=== PATIENT | female | born 1960 | race American Indian/Alaskan Native ===

== ENCOUNTER 2016-11-26 23:07 | Inpatient (IN) | payer SELFPAY ==
[2016-11-27 00:11] LABS: Basophils % (Auto) 0.7 % (0.0-1.8); Eosinophils % (Auto) 1.7 % (0.0-4.3); Hematocrit 42.3 % (30.3-42.9); Hemoglobin 13.8 gm/dl (10.1-14.3); Mean Corpuscular HGB Conc 33 % (30-34); Mean Corpuscular Hemoglobin 29 pg (28-32); Mean Corpuscular Volume 88 fl (79-97); Platelet Count 235 K/mm3 (140-440); Red Cell Distribution Width 14.9 % (13.2-15.2); White Blood Count 15.2 K/mm3 (4.5-11.0)
[2016-11-27 00:26] LABS: Alanine Aminotransferase 9 units/L (7-56); Albumin/Globulin Ratio 1.1 %; Alkaline Phosphatase 72 units/L (35-129); Anion Gap 16 mmol/L; BUN/Creatinine Ratio 12.22; Bilirubin,Total 0.9 mg/dL (0.1-1.2); Blood Urea Nitrogen 11 mg/dL (7-17); Calcium 9.2 mg/dL (8.4-10.2); Carbon Dioxide 27 mmol/L (22-30); Chloride 99.1 mmol/L (98-107); Glucose 95 mg/dL (65-100); Lipase 19 units/L (13-60); Potassium 3.9 mmol/L (3.6-5.0); Sodium 138 mmol/L (137-145); Total Protein 7.5 g/dL (6.3-8.2)
[2016-11-27 01:04] LABS: Bilirubin,Urine NEG (Negative); Blood,Urine NEG (Negative); Ketones,Urine NEG (Negative); Leukocyte Esterase,Urine NEG (Negative); Mucus,Urine FEW /HPF; Nitrite,Urine NEG (Negative); Protein,Urine <15 mg/dL mg/dL (Negative); Urobilinogen,Urine < 2.0 mg/dL (<2.0)
[2016-11-27] MEDS ORDERED: NACL 0.9% 1000 ML 1,000 ML IV ONE ×2 (06:38→10:45)
[2016-11-27] MEDS ORDERED: ZOFRAN IV ONE (06:38)
[2016-11-27] MEDS ORDERED: DILAUDID IV ONE ×2 (06:39→10:44)
[2016-11-27] MEDS ORDERED: TYLENOL PO ONE (06:40)
--- NOTE | 2016-11-27 06:40 | Emergency Department Report ---
ED Abdominal Pain HPI - General Chief Complaint: Abdominal Pain Stated Complaint: ABD PAIN/EMESIS Time Seen by Provider: 11/27/16 06:30 Source: patient, RN notes reviewed Mode of arrival: Ambulatory Limitations: No Limitations - History of Present Illness Initial Comments: This is a 56-year-old female. She is previously unknown to me. She does not have a primary care doctor. Reports a past medical history of hypertension. Surgical history includes cholecystectomy, appendectomy, partial hysterectomy, C -section. The patient presents to the ER with abdominal pain. Abdominal pain is diffuse. Positive nausea and vomiting. It is sharp. It does not radiate to the back. There is no chest pain or shortness of breath. No irritative or obstructive urinary symptoms. Reports brown stool and diarrhea. There is no hematemesis. There is no bright red blood per rectum. MD Complaint: abdominal pain -: Gradual Location: diffuse Severity: moderate Severity scale (0 -10): 6 Quality: cramping, aching Consistency: constant Improves With: medication, rest Worsens With: movement Associated Symptoms: nausea, vomiting - Related Data Previous Rx's Medication Instructions Recorded Last Taken Type Oxycodone HCl/Acetaminophen 1 each PO Q6HR PRN #20 tablet 12/13/13 Unknown Rx [Percocet 10-325 mg] Promethazine [Phenergan] 25 mg PO Q6H PRN #20 tablet 12/13/13 Unknown Rx Allergies Allergy/AdvReac Type Severity Reaction Status Date / Time hydrocodone Allergy Itching Verified 12/12/13 19:41 ED Review of Systems ROS: Stated complaint: ABD PAIN/EMESIS Other details as noted in HPI Constitutional: malaise Eyes: denies: vision change ENT: denies: epistaxis Respiratory: denies: cough Cardiovascular: denies: chest pain Gastrointestinal: abdominal pain, nausea, diarrhea Genitourinary: as per HPI. denies: urgency Musculoskeletal: denies: back pain Skin: denies: lesions Neurological: weakness Psychiatric: anxiety ED Past Medical Hx - Past Medical History Previous Medical History?: Yes Hx Hypertension: Yes Additional medical history: Obesity - Surgical History Past Surgical History?: Yes Hx Cholecystectomy: Yes Additional Surgical History: hysterectomy, , right knee surg - Social History Smoking Status: Current Every Day Smoker Substance Use Type: None - Medications Home Medications: Home Medications Medication Instructions Recorded Confirmed Last Taken Type Oxycodone HCl/Acetaminophen 1 each PO Q6HR PRN #20 tablet 12/13/13 11/27/16 Unknown Rx [Percocet 10-325 mg] Promethazine [Phenergan] 25 mg PO Q6H PRN #20 tablet 12/13/13 11/27/16 Unknown Rx ED Physical Exam - General Limitations: No Limitations General appearance: obese - Head Head exam: Present: atraumatic, normocephalic - Eye Eye exam: Present: normal appearance, EOMI. Absent: nystagmus - ENT ENT exam: Present: normal exam, normal orophraynx, mucous membranes moist, normal external ear exam - Neck Neck exam: Present: normal inspection, full ROM. Absent: tenderness, meningismus - Respiratory Respiratory exam: Present: normal lung sounds bilaterally. Absent: respiratory distress, wheezes, rales, rhonchi, stridor, decreased breath sounds - Cardiovascular Cardiovascular Exam: Present: regular rate, normal rhythm, normal heart sounds. Absent: bradycardia, tachycardia, irregular rhythm, systolic murmur, diastolic murmur, rubs, gallop - GI/Abdominal GI/Abdominal exam: Present: soft, tenderness, normal bowel sounds. Absent: distended, guarding, rebound, rigid, pulsatile mass - Extremities Exam Extremities exam: Present: normal inspection, full ROM, normal capillary refill. Absent: tenderness, pedal edema, joint swelling, calf tenderness - Back Exam Back exam: Present: normal inspection, full ROM. Absent: tenderness, CVA tenderness (R), CVA tenderness (L), muscle spasm, paraspinal tenderness, vertebral tenderness - Neurological Exam Neurological exam: Present: alert, oriented X3, normal gait, other (Extraocular movements intact. Tongue midline. No facial droop. Facial sensation intact to light touch in the V1, V2, V3 distribution bilaterally. 5 and 5 strength in 4 extremities.. Sensation is intact to light touch in 4 extremities.). Absent : motor sensory deficit - Psychiatric Psychiatric exam: Present: normal affect, normal mood - Skin Skin exam: Present: warm, dry, intact, normal color. Absent: rash ED Course Vital Signs 11/26/16 11/27/16 23:44 11:09 Temperature 99.4 F Pulse Rate 78 70 Respiratory 20 16 Rate Blood Pressure 198/113 121/72 [Right] O2 Sat by Pulse 100 94 Oximetry - Reevaluation(s) Reevaluation #1: 11/27/16 10:00 differential diagnosis: Colitis, diverticulitis, bowel perforation, appendicitis Assessment and plan: 56-year-old female with diffuse abdominal tenderness, low- grade temperature, found to be hypertensive, hypertension may be secondary to pain. Pain is treated aggressively. Laboratory studies reviewed. CT scan of the abdomen and pelvis is performed. Interpretation is pending. Reevaluation #2: 11/27/16 10:46 CT scans suggest microperforation. Case is discussed with the general surgeon, Dr. Anaya, he will follow as a consult. Patient has required multiple doses of IV narcotic pain medication. She will require additional IV fluids, IV antibiotics, and admission. The case is discussed with the Hospital physician, Dr. Anaya, who accepts patient to her service, patient and family informed and they are agreeable to admission. ED Medical Decision Making - Lab Data Result diagrams: 11/26/16 23:55 11/26/16 23:55 Vital Signs 11/26/16 23:44 Temperature 99.4 F Pulse Rate 78 Respiratory 20 Rate Blood Pressure 198/113 [Right] O2 Sat by Pulse 100 Oximetry Labs 11/26/16 11/26/16 11/26/16 23:55 23:55 Unknown WBC 15.2 H RBC 4.80 Hgb 13.8 Hct 42.3 MCV 88 MCH 29 MCHC 33 RDW 14.9 Plt Count 235 Lymph % (Auto) 23.3 [place] % (Auto) 7.7 H Eos % (Auto) 1.7 Baso % (Auto) 0.7 Lymph # 3.5 [place] # 1.2 H Eos # 0.3 Baso # 0.1 Seg Neutrophils % 66.6 Seg Neutrophils # 10.1 H Sodium 138 Potassium 3.9 Chloride 99.1 Carbon Dioxide 27 Anion Gap 16 BUN 11 Creatinine 0.9 Estimated GFR > 60 BUN/Creatinine Ratio 12.22 Glucose 95 Calcium 9.2 Total Bilirubin 0.9 AST 13 ALT 9 Alkaline Phosphatase 72 Total Protein 7.5 Albumin 4.0 Albumin/Globulin Ratio 1.1 Lipase 19 Urine Color Yellow Urine Turbidity Clear Urine pH 5.0 Ur Specific [place] 1.010 Urine Protein <15 mg/dl Urine Glucose (UA) Neg Urine Ketones Neg Urine Blood Neg Urine Nitrite Neg Urine Bilirubin Neg Urine Urobilinogen < 2.0 Ur Leukocyte Esterase Neg Urine WBC (Auto) Not Reportable Urine RBC (Auto) 3.0 U Epithel Cells (Auto) < 1.0 Urine Mucus Few - Radiology Data Radiology results: report reviewed, image reviewed interpreted by me: As per verbal report from radiologist, CT scan demonstrates diverticulitis, possible microperforation Critical care attestation.: If time is entered above; I have spent that time in minutes in the direct care of this critically ill patient, excluding procedure time. ED Disposition Clinical Impression: Diverticulitis Qualifiers: Diverticulitis site: unspecified part of intestinal tract Diverticulitis bleeding: without bleeding Diverticulitis complication: with perforation Qualified Code(s): K57.80 - Diverticulitis of intestine, part unspecified, with perforation and abscess without bleeding Disposition: OP ADMITTED IP TO THIS HOSP Is pt being admited?: Yes Condition: Good
[2016-11-27] MEDS ORDERED: NACL ONE (06:49)
[2016-11-27] MEDS ORDERED: MORPHINE IV ONE (09:24)
[2016-11-27] MEDS ORDERED: ZOSYN/NS 4.5GM/100ML 4.5 GM/100 ML VIAL IV ONE (10:44)
--- NOTE | 2016-11-27 10:49 | Cat Scan Report ---
CT of the abdomen and pelvis with IV contrast. Findings: The liver and spleen are normal. The gallbladder has been removed. The pancreas and kidneys are unremarkable. There is no adenopathy within the retroperitoneum. In the left lower quadrant at the junction of the descending colon and proximal sigmoid region, there is mural thickening with juan antonio-colonic mesenteric stranding. Several diverticula are seen in the area. There may be a tiny collection of air anteriorly. The remainder of the GI tract appears normal. No free air is seen beneath the hemidiaphragms. Impression: Diverticulitis involving the distal descending and proximal sigmoid colon with possible microperforation.
--- NOTE | 2016-11-27 10:56 | Admit Criteria Form ---
Admission Criteria Documentation: DIVERTICULITIS, ACUTE Clinical Indications for Admission to Inpatient Care (Place 'X' for any and all applicable criteria): Admission is indicated for ANY ONE of the following (1)(2)(3)(4): [ X]I. Peritoneal signs on physical examination (eg, acute abdominal pain, abdominal tenderness and guarding) [ ]II. Hemodynamic instability [ ]III. Persistent gross bleeding per rectum [ ]IV. Need for inpatient surgical intervention [X ]V. Significant abnormality on imaging study including ANY ONE of the following: [ ]a) Abscess [ ]b) Obstruction [ ]c) Fistula [ ]d) Ileus [X ]e) Free perforation [ ]. Immunocompromised patient (steroid use, chemotherapy, uremia, AIDS , transplant patient ) with acute symptoms [ ]VII Inpatient admission required rather than observation care (also use Diverticulitis, Acute: Observation Care as appropriate) because of ANY ONE of the following: [ ]a) High fever or infection. requiring inpatient admission as indicated by ANY ONE of the following(5): [ ]1) Appropriate outpatient or observation care antimicrobial treatment unavailable, not effective, not feasible [ ]2) Temperature > 103.1 degrees F (39.5 degrees C) (oral) or < 96.8 degrees F (36 degrees C)(rectal) that does not respond to all emergency treatment measures [ ]3) Temperature> 104.9 degrees F (40.5 degrees C)( oral) [ ]4) Documented bacteremia [ ]b) Severe pain requiring acute inpatient management [ ]c) Severe electrolyte abnormalities requiring inpatient care [ ]d) Ongoing transfusion for blood loss (> 2 units) [ ]e) IV fluid to replace significant ongoing losses (> 3 L/m2 per day) [ ]f) Parenteral nutrition regimen that must be implemented on inpatient basis [ ]g) Other condition, treatment or monitoring requiring inpatient admission Extended stay beyond goal length of stay may be needed for (2) (15) : [ ]a) Unresolved symptoms (19) [ ]b) Complications [ ]c) Diverticular hemorrhage(2) The original [facility] [employer] content created by [facility] has been revised. The portions of the content which have been revised are identified through the use of italic text or in bold, and [facility] [employer] has neither reviewed nor approved the modified material. All other unmodified content is copyright [facility]. Please see references footnoted in the original [facility] edition 2016 Admission Criteria Met: Yes
[2016-11-27] MEDS ORDERED: LEVAQUIN 750MG/150ML 750 MG/150 ML BAG IV ONE (11:50)
--- NOTE | 2016-11-27 11:50 | History and Physical Report ---
History of Present Illness Date of examination: 11/27/16 Date of admission: 11/27/16 Chief complaint: Left lower quadrant abdominal pain since yesterday afternoon History of present illness: 56-year-old morbidly obese -Malaysian female patient with significant past medical history of hypertension noncompliant with medications presented to the emergency room with left lower quadrant abdominal pain since yesterday afternoon . Patient also complains of nausea vomiting no diarrhea. , No history of fever Denies chest pain shortness of breath , denies headache dizziness Member had similar symptoms in the past , initial workup in the ER was consistent with acute diverticulitis of descending colon No known relieving or aggravating factors Past History Past Medical History: hypertension Past Surgical History: cholecystectomy, , hysterectomy, Other (knee surgery) Social history: lives with family, smoking. denies: alcohol abuse, prescription drug abuse Family history: hypertension Medications and Allergies Allergies Allergy/AdvReac Type Severity Reaction Status Date / Time hydrocodone Allergy Itching Verified 12/12/13 19:41 Home Medications Medication Instructions Recorded Confirmed Last Taken Type Oxycodone HCl/Acetaminophen 1 each PO Q6HR PRN #20 tablet 12/13/13 11/27/16 Unknown Rx [Percocet 10-325 mg] Promethazine [Phenergan] 25 mg PO Q6H PRN #20 tablet 12/13/13 11/27/16 Unknown Rx Active Meds: Active Medications Levofloxacin/Dextrose (Levaquin 750mg/150ml) 750 mg in 150 mls @ 100 mls/hr IV Q24HR KOBE PRN Reason: Protocol Levofloxacin/Dextrose (Levaquin 750mg/150ml) 750 mg in 150 mls @ 100 mls/hr IV ONCE ONE PRN Reason: Protocol Stop: 11/27/16 13:19 Metronidazole (Flagyl 500 Mg/100 Ml) 500 mg in 100 mls @ 100 mls/hr IV Q8HR KOBE Review of Systems Constitutional: fatigue, no weight loss, no weight gain, no fever, no chills Ears, nose, mouth and throat: no nasal congestion, no nasal discharge Cardiovascular: no chest pain, no orthopnea, no palpitations, no shortness of breath Respiratory: no cough, no hemoptysis Gastrointestinal: abdominal pain, nausea, vomiting Musculoskeletal: no myalgias, no arthritis Integumentary: no rash, no lesions Neurological: no tingling, no seizures, no syncope Psychiatric: no anxiety, no depression Endocrine: no cold intolerance, no heat intolerance Hematologic/Lymphatic: no easy bruising, no easy bleeding Allergic/Immunologic: no urticaria, no allergic rhinitis Exam - Constitutional Vitals: Temp Pulse Resp BP Pulse Ox 99.4 F 70 16 121/72 94 11/26/16 23:44 11/27/16 11:09 11/27/16 11:09 11/27/16 11:09 11/27/16 11:09 General appearance: Present: mild distress, well-nourished, obese (morbidly obese) - EENT Eyes: Present: PERRL, EOM intact - Neck Neck: Present: supple, normal ROM - Respiratory Respiratory effort: normal Respiratory: bilateral: CTA, diminished, negative: rhonchi, wheezing - Cardiovascular Rhythm: regular Heart Sounds: Present: S1 & S2 - Extremities Extremities: no ischemia, pulses intact, pulses symmetrical Peripheral Pulses: within normal limits - Abdominal General gastrointestinal: Present: soft, tender (mild guarding left lower quadrant), hypoactive bowel sounds - Integumentary Integumentary: Present: clear, warm - Musculoskeletal Musculoskeletal: strength equal bilaterally - Psychiatric Psychiatric: appropriate mood/affect, cooperative - Neurologic Neurologic: CNII-XII intact, moves all extremities Results - Labs CBC & Chem 7: 11/26/16 23:55 11/26/16 23:55 Labs: Abnormal lab results 11/26/16 Range/Units 23:55 WBC 15.2 H (4.5-11.0) K/mm3 [place] % (Auto) 7.7 H (0.0-7.3) % [place] # 1.2 H (0.0-0.8) K/mm3 Seg Neutrophils # 10.1 H (1.8-7.7) K/mm3 Assessment and Plan --Acute diverticulitis, microperforation descending colon Nothing by mouth status, IV fluids, IV antibiotics Pain management Surgery/GI evaluation as needed --Leukocytosis secondary to diverticulitis and microperforation and sepsis --Acute abdominal pain Supportive care --DVT prophylaxis with Lovenox --Morbid obesity we will senior counsel commercial the patient and advised that she modification and exercise as tolerated and weight reduction When medically stable --Ongoing tobacco use Smoking cessation counseling done, strongly advised to quit tobacco use This and consequences of ongoing tobacco use discussed with the patient, verbalized understanding --Full CODE STATUS Follow surgical consultation and recommendations Patient's condition treatment plan discussed in detail with the patient as well as his nurse and the ER physician
[2016-11-27] MEDS: MORPHINE IV PRN ×3 (14:38→22:52)
[2016-11-27] MEDS: NACL 0.9% 1000 ML 1,000 ML IV SCH (16:25)
[2016-11-27] MEDS: FLAGYL 500 MG/100 ML 500 MG/100 ML BAG IV SCH (16:25)
[2016-11-28] MEDS: FLAGYL 500 MG/100 ML 500 MG/100 ML BAG IV SCH ×4 (00:17→22:10)
--- NOTE | 2016-11-28 02:04 | Consultation ---
HISTORY OF PRESENT ILLNESS: I saw the patient in the Emergency Room. She is a 56-year-old -Bangl[place] female came because of severe pain that she developed in the left aspect of the abdomen for about 1 day duration. She had severe nausea and vomiting. She gives a history of cholecystectomy many years back and hysterectomy. She had 2 children, the youngest is 33-year-old. The pain at this time happened while she was asleep and she could not take it anymore. She never had pain like this in the past, not even less than that. She was evaluated by our Emergency Room physician and her CBC showed a white count of 15,000 with hemoglobin of 13.8 and platelets were 235. The alkaline phosphatase is normal. The potassium is 3.9. Bilirubin total is 0.9. 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 I read the films with Dr. Migue Amaya, our radiologist. There is evidence of thickening of the wall of the sigmoid colon to about cm and there is questionable very minute well localized perforation without free air. This was a little bit of concern to Dr. Amaya. Rest of examination did not reveal anything specific. ALLERGIC: Allergic reactions to codeine mainly. PHYSICAL EXAMINATION: GENERAL: Showed a well preserved obese black female. She was in pain to me when I saw her. HEAD AND NECK: Negative. BREASTS: Symmetric. These were pendulous without any specific masses. No tenderness, no nipple retraction, no lymphadenopathy. CHEST: Essentially clear. HEART: Sounds normal to me. ABDOMEN: Protuberant, very, with severe tenderness in the left lower quadrant aspects. No rebound. Moderate bowel sounds. EXTREMITIES: Showed trace edema. IMPRESSION: 1. Left side abdominal pain, nausea and vomiting with radiological picture of localized perforated diverticular disease with thickened wall of the sigmoid colon. 2. Exogenous obesity. 3. Status post cholecystectomy open and hysterectomy. Surgically speaking, I believe we need to pursue that further with just observation. The patient already on Levaquin and Flagyl given to her by our hospitalist to be n.p.o. with IV fluids and we will go from there. We are going to repeat her KUB tomorrow. I believe we may need to do a CAT scan again in about 3-4 days to see how things would be. I did indicate to her that she may need an operation and we will just go from there. JOB# [id number] AYESHA/VICTOR MANUEL
[2016-11-28 05:38] LABS: Basophils % (Auto) 0.7 % (0.0-1.8); Eosinophils % (Auto) 2.2 % (0.0-4.3); Hematocrit 39.5 % (30.3-42.9); Hemoglobin 12.8 gm/dl (10.1-14.3); Mean Corpuscular HGB Conc 32 % (30-34); Mean Corpuscular Hemoglobin 29 pg (28-32); Mean Corpuscular Volume 89 fl (79-97); Platelet Count 209 K/mm3 (140-440); Red Blood Count 4.43 M/mm3 (3.65-5.03); Red Cell Distribution Width 14.8 % (13.2-15.2); White Blood Count 11.8 K/mm3 (4.5-11.0)
[2016-11-28 05:42] LABS: Anion Gap 18 mmol/L; BUN/Creatinine Ratio 11.66; Blood Urea Nitrogen 7 mg/dL (7-17); Calcium 8.6 mg/dL (8.4-10.2); Carbon Dioxide 24 mmol/L (22-30); Chloride 101.9 mmol/L (98-107); Glucose 90 mg/dL (65-100); Magnesium 1.9 mg/dL (1.7-2.3); Phosphorous 3.5 mg/dL (2.5-4.5); Potassium 4.1 mmol/L (3.6-5.0); Sodium 140 mmol/L (137-145)
--- NOTE | 2016-11-28 09:44 | Progress Note ---
Assessment and Plan Assessment and plan: --Acute diverticulitis, microperforation descending colon Continue Nothing by mouth status, IV fluids, IV Levaquin and Flagyl Pain management, Surgery following KUB findings reviewed --Leukocytosis secondary to diverticulitis and microperforation and sepsis Trending down closely monitor --Acute abdominal pain Pain management nothing by mouth status --DVT prophylaxis with Lovenox --Morbid obesity we will child guidance counselor the patient and advised that she modification and exercise as tolerated and weight reduction When medically stable --Ongoing tobacco use Smoking cessation counseling done, strongly advised to quit tobacco use This and consequences of ongoing tobacco use discussed with the patient, verbalized understanding --Full CODE STATUS Surgical evaluation and recommendations noted and appreciated Closely monitor the patient and adjust the management as needed Patient's condition treatment plan discussed in detail with the patient as well as her nurse Answered all her questions and she verbalized understanding History Interval history: Patient seen and evaluated in her room this morning medical records reviewed Admitted with acute colitis, nothing by mouth on IV antibiotics Patient continues to have severe left lower quadrant abdominal pain and mild nausea Hospitalist Physical - Constitutional Vitals: Temp Pulse Resp BP Pulse Ox 98.3 F 63 20 144/91 91 11/28/16 07:25 11/27/16 22:48 11/28/16 07:25 11/27/16 22:48 11/27/16 22:48 General appearance: Present: mild distress, well-nourished, obese (morbidly obese) - EENT Eyes: Present: PERRL, EOM intact - Neck Neck: Present: supple, normal ROM - Respiratory Respiratory effort: normal Respiratory: bilateral: diminished, negative: rales, rhonchi, wheezing - Cardiovascular Rhythm: regular Heart Sounds: Present: S1 & S2 - Extremities Extremities: no ischemia, pulses intact, pulses symmetrical Peripheral Pulses: within normal limits - Abdominal General gastrointestinal: soft, tender (mild guarding and rigidity left lower quadrant), non-distended, hypoactive bowel sounds - Integumentary Integumentary: Present: clear, warm - Psychiatric Psychiatric: appropriate mood/affect, cooperative - Neurologic Neurologic: CNII-XII intact Results - Labs CBC & Chem 7: 11/28/16 05:08 11/28/16 05:08 Labs: Laboratory Last Values WBC 11.8 K/mm3 (4.5-11.0) H 11/28/16 05:08 RBC 4.43 M/mm3 (3.65-5.03) 11/28/16 05:08 Hgb 12.8 gm/dl (10.1-14.3) 11/28/16 05:08 Hct 39.5 % (30.3-42.9) 11/28/16 05:08 MCV 89 fl (79-97) 11/28/16 05:08 MCH 29 pg (28-32) 11/28/16 05:08 MCHC 32 % (30-34) 11/28/16 05:08 RDW 14.8 % (13.2-15.2) 11/28/16 05:08 Plt Count 209 K/mm3 (140-440) 11/28/16 05:08 Lymph % (Auto) 20.2 % (13.4-35.0) 11/28/16 05:08 [place] % (Auto) 6.8 % (0.0-7.3) 11/28/16 05:08 Eos % (Auto) 2.2 % (0.0-4.3) 11/28/16 05:08 Baso % (Auto) 0.7 % (0.0-1.8) 11/28/16 05:08 Lymph # 2.4 K/mm3 (1.2-5.4) 11/28/16 05:08 [place] # 0.8 K/mm3 (0.0-0.8) 11/28/16 05:08 Eos # 0.3 K/mm3 (0.0-0.4) 11/28/16 05:08 Baso # 0.1 K/mm3 (0.0-0.1) 11/28/16 05:08 Seg Neutrophils % 70.1 % (40.0-70.0) H 11/28/16 05:08 Seg Neutrophils # 8.3 K/mm3 (1.8-7.7) H 11/28/16 05:08 Sodium 140 mmol/L (137-145) 11/28/16 05:08 Potassium 4.1 mmol/L (3.6-5.0) 11/28/16 05:08 Chloride 101.9 mmol/L (98-107) 11/28/16 05:08 Carbon Dioxide 24 mmol/L (22-30) 11/28/16 05:08 Anion Gap 18 mmol/L 11/28/16 05:08 BUN 7 mg/dL (7-17) 11/28/16 05:08 Creatinine 0.6 mg/dL (0.7-1.2) L 11/28/16 05:08 Estimated GFR > 60 ml/min 11/28/16 05:08 BUN/Creatinine Ratio 11.66 % 11/28/16 05:08 Glucose 90 mg/dL (65-100) 11/28/16 05:08 Calcium 8.6 mg/dL (8.4-10.2) 11/28/16 05:08 Phosphorus 3.5 mg/dL (2.5-4.5) 11/28/16 05:08 Magnesium 1.9 mg/dL (1.7-2.3) 11/28/16 05:08 Total Bilirubin 0.9 mg/dL (0.1-1.2) 11/26/16 23:55 AST 13 units/L (5-40) 11/26/16 23:55 ALT 9 units/L (7-56) 11/26/16 23:55 Alkaline Phosphatase 72 units/L (35-129) 11/26/16 23:55 Total Protein 7.5 g/dL (6.3-8.2) 11/26/16 23:55 Albumin 4.0 g/dL (3.9-5) 11/26/16 23:55 Albumin/Globulin Ratio 1.1 % 11/26/16 23:55 Lipase 19 units/L (13-60) 11/26/16 23:55 Urine Color Yellow (Yellow) 11/26/16 Unknown Urine Turbidity Clear (Clear) 11/26/16 Unknown Urine pH 5.0 (5.0-7.0) 11/26/16 Unknown Ur Specific [place] 1.010 (1.003-1.030) 11/26/16 Unknown Urine Protein <15 mg/dl mg/dL (Negative) 11/26/16 Unknown Urine Glucose (UA) Neg mg/dL (Negative) 11/26/16 Unknown Urine Ketones Neg mg/dL (Negative) 11/26/16 Unknown Urine Blood Neg (Negative) 11/26/16 Unknown Urine Nitrite Neg (Negative) 11/26/16 Unknown Urine Bilirubin Neg (Negative) 11/26/16 Unknown Urine Urobilinogen < 2.0 mg/dL (<2.0) 11/26/16 Unknown Ur Leukocyte Esterase Neg (Negative) 11/26/16 Unknown Urine WBC (Auto) Not Reportable 11/26/16 Unknown Urine RBC (Auto) 3.0 /HPF (0.0-6.0) 11/26/16 Unknown U Epithel Cells (Auto) < 1.0 /HPF (0-13.0) 11/26/16 Unknown Urine Mucus Few /HPF 11/26/16 Unknown
[2016-11-28] MEDS: LEVAQUIN 750MG/150ML 750 MG/150 ML BAG IV SCH (09:49)
[2016-11-28] MEDS: HABITROL TD SCH (09:50)
--- NOTE | 2016-11-28 10:09 | XRay Report ---
SUPINE KUB: History: Abdominal pain, colitis. The abdominal gas pattern is unremarkable. No masses or organomegaly is identified and there is no gross evidence of free air or fluid. No significant soft tissue calcifications are noted. IMPRESSION: Normal study.
[2016-11-28] MEDS: MORPHINE IV PRN ×3 (10:28→22:16)
[2016-11-28] MEDS ORDERED: FLUARIX QUAD 2016-2017(36 MOS+) IM ONE (12:00)
[2016-11-28] MEDS ORDERED: PNEUMOVAX 23 IM ONE (12:00)
--- NOTE | 2016-11-28 14:06 | Progress Note ---
Subjective Patient Reports: Positive: still having pain Narrative: doing OK still with Pain no nausea .abd with tenderness LLQ will start lcear liq . KUB WNL Objective Vital Signs - 12hr 11/28/16 07:25 Temperature 98.3 F Respiratory 20 Rate - Labs 11/28/16 05:08 11/28/16 05:08 Diabetes panel 11/28/16 Range/Units 05:08 Sodium 140 (137-145) mmol/L Potassium 4.1 (3.6-5.0) mmol/L Chloride 101.9 (98-107) mmol/L Carbon Dioxide 24 (22-30) mmol/L BUN 7 (7-17) mg/dL Creatinine 0.6 L (0.7-1.2) mg/dL Glucose 90 (65-100) mg/dL Calcium 8.6 (8.4-10.2) mg/dL Calcium panel 11/28/16 Range/Units 05:08 Calcium 8.6 (8.4-10.2) mg/dL Phosphorus 3.5 (2.5-4.5) mg/dL Pituitary panel 11/28/16 Range/Units 05:08 Sodium 140 (137-145) mmol/L Potassium 4.1 (3.6-5.0) mmol/L Chloride 101.9 (98-107) mmol/L Carbon Dioxide 24 (22-30) mmol/L BUN 7 (7-17) mg/dL Creatinine 0.6 L (0.7-1.2) mg/dL Glucose 90 (65-100) mg/dL Calcium 8.6 (8.4-10.2) mg/dL Adrenal panel 11/28/16 Range/Units 05:08 Sodium 140 (137-145) mmol/L Potassium 4.1 (3.6-5.0) mmol/L Chloride 101.9 (98-107) mmol/L Carbon Dioxide 24 (22-30) mmol/L BUN 7 (7-17) mg/dL Creatinine 0.6 L (0.7-1.2) mg/dL Glucose 90 (65-100) mg/dL Calcium 8.6 (8.4-10.2) mg/dL
[2016-11-28] MEDS: ZOFRAN IV PRN ×2 (17:20→22:16)
[2016-11-28] MEDS: NACL 0.9% 1000 ML 1,000 ML IV SCH (19:17)
[2016-11-28] MEDS: HEPARIN SUB-Q SCH (22:11)
[2016-11-28] MEDS: TYLENOL PO PRN (23:47)
[2016-11-29] MEDS: FLAGYL 500 MG/100 ML 500 MG/100 ML BAG IV SCH ×3 (06:05→22:13)
[2016-11-29] MEDS: HEPARIN SUB-Q SCH ×3 (06:06→22:15)
[2016-11-29] MEDS: NACL 0.9% 1000 ML 1,000 ML IV SCH ×2 (06:06→22:12)
[2016-11-29 07:39] LABS: Basophils % (Auto) 0.8 % (0.0-1.8); Eosinophils % (Auto) 2.8 % (0.0-4.3); Hematocrit 38.7 % (30.3-42.9); Hemoglobin 12.7 gm/dl (10.1-14.3); Mean Corpuscular HGB Conc 33 % (30-34); Mean Corpuscular Hemoglobin 29 pg (28-32); Mean Corpuscular Volume 89 fl (79-97); Platelet Count 219 K/mm3 (140-440); Red Blood Count 4.34 M/mm3 (3.65-5.03); Red Cell Distribution Width 14.7 % (13.2-15.2); White Blood Count 9.3 K/mm3 (4.5-11.0)
[2016-11-29 07:40] LABS: Anion Gap 16 mmol/L; BUN/Creatinine Ratio 8.57; Blood Urea Nitrogen 6 mg/dL (7-17); Calcium 8.7 mg/dL (8.4-10.2); Carbon Dioxide 25 mmol/L (22-30); Chloride 100.3 mmol/L (98-107); Glucose 84 mg/dL (65-100); Magnesium 1.9 mg/dL (1.7-2.3); Potassium 3.7 mmol/L (3.6-5.0); Sodium 138 mmol/L (137-145)
--- NOTE | 2016-11-29 09:58 | XRay Report ---
SUPINE KUB: History: Left lower quadrant abdominal pain, diverticulitis. The abdominal gas pattern is unremarkable. No masses or organomegaly is identified and there is no gross evidence of free air or fluid. No significant soft tissue calcifications are noted. IMPRESSION: Normal study. No change since yesterday's exam.
[2016-11-29] MEDS: HABITROL TD SCH (10:49)
[2016-11-29] MEDS: LEVAQUIN 750MG/150ML 750 MG/150 ML BAG IV SCH (10:50)
--- NOTE | 2016-11-29 11:47 | Progress Note ---
Assessment and Plan Assessment and plan: --Acute diverticulitis, microperforation descending colon Symptoms slightly improved , patient tolerated clear liquids Advance as tolerated IV fluids, IV Levaquin and Flagyl Pain management, Surgery following --Leukocytosis corrected, WBC within normal limits --Acute abdominal pain, Symptoms significantly improved --DVT prophylaxis with Lovenox --Morbid obesity; counselled the patient and advised dietary modification and exercise as tolerated and weight reduction When medically stable --Ongoing tobacco use Smoking cessation counseling done, strongly advised to quit tobacco use, pain 10 minutes counseling the patient consequences of ongoing tobacco use discussed with the patient, verbalized understanding --Full CODE STATUS Stable discharge in 1-2 days if stable Plan of care discussed with the patient has been at the bedside and her nurse Answered all his questions, patient and verbalized understanding History Interval history: Patient seen and evaluated in her room this morning medical records reviewed Family member at the bedside, patient is tolerating clear liquids advance to full liquids today Very minimal abdominal pain, denies nausea vomiting Alert awake oriented 3 not in acute distress Hospitalist Physical - Constitutional Vitals: Temp Pulse Resp BP Pulse Ox 98.2 F 52 L 20 150/74 95 11/29/16 09:15 11/29/16 09:15 11/29/16 09:15 11/29/16 09:15 11/29/16 00:00 General appearance: Present: no acute distress, well-nourished, obese (morbidly obese) - EENT Eyes: Present: PERRL, EOM intact - Neck Neck: Present: supple, normal ROM - Respiratory Respiratory effort: normal Respiratory: bilateral: diminished, negative: rales, rhonchi, wheezing - Cardiovascular Rhythm: regular Heart Sounds: Present: S1 & S2 - Extremities Extremities: no ischemia, pulses intact, pulses symmetrical Peripheral Pulses: within normal limits - Abdominal General gastrointestinal: soft, non-tender, non-distended, normal bowel sounds - Integumentary Integumentary: Present: clear, warm - Psychiatric Psychiatric: appropriate mood/affect, cooperative - Neurologic Neurologic: CNII-XII intact, moves all extremities Results - Labs CBC & Chem 7: 11/29/16 06:16 11/29/16 06:16 Labs: Laboratory Last Values WBC 9.3 K/mm3 (4.5-11.0) 11/29/16 06:16 RBC 4.34 M/mm3 (3.65-5.03) 11/29/16 06:16 Hgb 12.7 gm/dl (10.1-14.3) 11/29/16 06:16 Hct 38.7 % (30.3-42.9) 11/29/16 06:16 MCV 89 fl (79-97) 11/29/16 06:16 MCH 29 pg (28-32) 11/29/16 06:16 MCHC 33 % (30-34) 11/29/16 06:16 RDW 14.7 % (13.2-15.2) 11/29/16 06:16 Plt Count 219 K/mm3 (140-440) 11/29/16 06:16 Lymph % (Auto) 23.9 % (13.4-35.0) 11/29/16 06:16 [place] % (Auto) 7.7 % (0.0-7.3) H 11/29/16 06:16 Eos % (Auto) 2.8 % (0.0-4.3) 11/29/16 06:16 Baso % (Auto) 0.8 % (0.0-1.8) 11/29/16 06:16 Lymph # 2.2 K/mm3 (1.2-5.4) 11/29/16 06:16 [place] # 0.7 K/mm3 (0.0-0.8) 11/29/16 06:16 Eos # 0.3 K/mm3 (0.0-0.4) 11/29/16 06:16 Baso # 0.1 K/mm3 (0.0-0.1) 11/29/16 06:16 Seg Neutrophils % 64.8 % (40.0-70.0) 11/29/16 06:16 Seg Neutrophils # 6.0 K/mm3 (1.8-7.7) 11/29/16 06:16 Sodium 138 mmol/L (137-145) 11/29/16 06:16 Potassium 3.7 mmol/L (3.6-5.0) 11/29/16 06:16 Chloride 100.3 mmol/L (98-107) 11/29/16 06:16 Carbon Dioxide 25 mmol/L (22-30) 11/29/16 06:16 Anion Gap 16 mmol/L 11/29/16 06:16 BUN 6 mg/dL (7-17) L 11/29/16 06:16 Creatinine 0.7 mg/dL (0.7-1.2) 11/29/16 06:16 Estimated GFR > 60 ml/min 11/29/16 06:16 BUN/Creatinine Ratio 8.57 % 11/29/16 06:16 Glucose 84 mg/dL (65-100) 11/29/16 06:16 Calcium 8.7 mg/dL (8.4-10.2) 11/29/16 06:16 Phosphorus 3.5 mg/dL (2.5-4.5) 11/28/16 05:08 Magnesium 1.9 mg/dL (1.7-2.3) 11/29/16 06:16 Total Bilirubin 0.9 mg/dL (0.1-1.2) 11/26/16 23:55 AST 13 units/L (5-40) 11/26/16 23:55 ALT 9 units/L (7-56) 11/26/16 23:55 Alkaline Phosphatase 72 units/L (35-129) 11/26/16 23:55 Total Protein 7.5 g/dL (6.3-8.2) 11/26/16 23:55 Albumin 4.0 g/dL (3.9-5) 11/26/16 23:55 Albumin/Globulin Ratio 1.1 % 11/26/16 23:55 Lipase 19 units/L (13-60) 11/26/16 23:55 Urine Color Yellow (Yellow) 11/26/16 Unknown Urine Turbidity Clear (Clear) 11/26/16 Unknown Urine pH 5.0 (5.0-7.0) 11/26/16 Unknown Ur Specific [place] 1.010 (1.003-1.030) 11/26/16 Unknown Urine Protein <15 mg/dl mg/dL (Negative) 11/26/16 Unknown Urine Glucose (UA) Neg mg/dL (Negative) 11/26/16 Unknown Urine Ketones Neg mg/dL (Negative) 11/26/16 Unknown Urine Blood Neg (Negative) 11/26/16 Unknown Urine Nitrite Neg (Negative) 11/26/16 Unknown Urine Bilirubin Neg (Negative) 11/26/16 Unknown Urine Urobilinogen < 2.0 mg/dL (<2.0) 11/26/16 Unknown Ur Leukocyte Esterase Neg (Negative) 11/26/16 Unknown Urine WBC (Auto) Not Reportable 11/26/16 Unknown Urine RBC (Auto) 3.0 /HPF (0.0-6.0) 11/26/16 Unknown U Epithel Cells (Auto) < 1.0 /HPF (0-13.0) 11/26/16 Unknown Urine Mucus Few /HPF 11/26/16 Unknown
[2016-11-29] MEDS: TYLENOL PO PRN (22:34)
[2016-11-30] MEDS: ZOFRAN IV PRN (04:04)
[2016-11-30] MEDS: MORPHINE IV PRN (04:04)
[2016-11-30] MEDS: HEPARIN SUB-Q SCH ×3 (06:04→22:00)
[2016-11-30] MEDS: FLAGYL 500 MG/100 ML 500 MG/100 ML BAG IV SCH ×3 (06:04→22:00)
[2016-11-30] MEDS: TYLENOL PO PRN ×3 (06:10→23:07)
[2016-11-30] MEDS ORDERED: TORADOL PO PRN (07:32)
[2016-11-30] MEDS ORDERED: MORPHINE IV PRN (07:33)
--- NOTE | 2016-11-30 07:40 | Progress Note ---
Assessment and Plan Assessment and plan: --Moderate hypertension; probably secondary to pain Optimal pain medications, low-dose hydralazine as needed --Acute diverticulitis, microperforation descending colon Symptoms continue to improve, advance diet as tolerated Continue IV Levaquin and change Flagyl to by mouth Surgery following --Leukocytosis resolved --Acute abdominal pain, secondary to diverticulitis Symptoms significantly improved --DVT prophylaxis with Lovenox --Morbid obesity; counselled the patient and advised dietary modification and exercise as tolerated and weight reduction When medically stable --Ongoing tobacco use Smoking cessation counseling done, strongly advised to quit tobacco use, Advised nicotine patch --Disposition; advance diet as tolerated, out of bed and ambulation as tolerated Possible discharge in 1-2 days on oral antibiotics if stable History Interval history: Patient seen and evaluated in her room medical records reviewed No new events reported by the nursing staff Patient had 2 bowel movements, abdominal pain significantly improved Denies nausea and vomiting, complains of mild headache Hospitalist Physical - Constitutional Vitals: Temp Pulse Resp BP Pulse Ox 98.6 F 62 20 173/84 100 11/29/16 23:00 11/29/16 23:00 11/30/16 04:04 11/29/16 23:00 11/29/16 23:00 General appearance: Present: no acute distress, well-nourished, obese (morbidly obese) - EENT Eyes: Present: PERRL, EOM intact - Neck Neck: Present: supple, normal ROM - Respiratory Respiratory effort: normal Respiratory: negative: rales, rhonchi, wheezing - Cardiovascular Rhythm: regular Heart Sounds: Present: S1 & S2 - Extremities Extremities: no ischemia, pulses intact, pulses symmetrical, No edema Peripheral Pulses: within normal limits - Abdominal General gastrointestinal: soft, non-tender, non-distended, normal bowel sounds Localized gastrointestinal: tender: LLQ (minimal tenderness) - Integumentary Integumentary: Present: clear, warm - Psychiatric Psychiatric: appropriate mood/affect, cooperative - Neurologic Neurologic: CNII-XII intact, moves all extremities Results - Labs CBC & Chem 7: 11/29/16 06:16 11/29/16 06:16 Labs: Laboratory Last Values WBC 9.3 K/mm3 (4.5-11.0) 11/29/16 06:16 RBC 4.34 M/mm3 (3.65-5.03) 11/29/16 06:16 Hgb 12.7 gm/dl (10.1-14.3) 11/29/16 06:16 Hct 38.7 % (30.3-42.9) 11/29/16 06:16 MCV 89 fl (79-97) 11/29/16 06:16 MCH 29 pg (28-32) 11/29/16 06:16 MCHC 33 % (30-34) 11/29/16 06:16 RDW 14.7 % (13.2-15.2) 11/29/16 06:16 Plt Count 219 K/mm3 (140-440) 11/29/16 06:16 Lymph % (Auto) 23.9 % (13.4-35.0) 11/29/16 06:16 [place] % (Auto) 7.7 % (0.0-7.3) H 11/29/16 06:16 Eos % (Auto) 2.8 % (0.0-4.3) 11/29/16 06:16 Baso % (Auto) 0.8 % (0.0-1.8) 11/29/16 06:16 Lymph # 2.2 K/mm3 (1.2-5.4) 11/29/16 06:16 [place] # 0.7 K/mm3 (0.0-0.8) 11/29/16 06:16 Eos # 0.3 K/mm3 (0.0-0.4) 11/29/16 06:16 Baso # 0.1 K/mm3 (0.0-0.1) 11/29/16 06:16 Seg Neutrophils % 64.8 % (40.0-70.0) 11/29/16 06:16 Seg Neutrophils # 6.0 K/mm3 (1.8-7.7) 11/29/16 06:16 Sodium 138 mmol/L (137-145) 11/29/16 06:16 Potassium 3.7 mmol/L (3.6-5.0) 11/29/16 06:16 Chloride 100.3 mmol/L (98-107) 11/29/16 06:16 Carbon Dioxide 25 mmol/L (22-30) 11/29/16 06:16 Anion Gap 16 mmol/L 11/29/16 06:16 BUN 6 mg/dL (7-17) L 11/29/16 06:16 Creatinine 0.7 mg/dL (0.7-1.2) 11/29/16 06:16 Estimated GFR > 60 ml/min 11/29/16 06:16 BUN/Creatinine Ratio 8.57 % 11/29/16 06:16 Glucose 84 mg/dL (65-100) 11/29/16 06:16 Calcium 8.7 mg/dL (8.4-10.2) 11/29/16 06:16 Phosphorus 3.5 mg/dL (2.5-4.5) 11/28/16 05:08 Magnesium 1.9 mg/dL (1.7-2.3) 11/29/16 06:16 Total Bilirubin 0.9 mg/dL (0.1-1.2) 11/26/16 23:55 AST 13 units/L (5-40) 11/26/16 23:55 ALT 9 units/L (7-56) 11/26/16 23:55 Alkaline Phosphatase 72 units/L (35-129) 11/26/16 23:55 Total Protein 7.5 g/dL (6.3-8.2) 11/26/16 23:55 Albumin 4.0 g/dL (3.9-5) 11/26/16 23:55 Albumin/Globulin Ratio 1.1 % 11/26/16 23:55 Lipase 19 units/L (13-60) 11/26/16 23:55 Urine Color Yellow (Yellow) 11/26/16 Unknown Urine Turbidity Clear (Clear) 11/26/16 Unknown Urine pH 5.0 (5.0-7.0) 11/26/16 Unknown Ur Specific [place] 1.010 (1.003-1.030) 11/26/16 Unknown Urine Protein <15 mg/dl mg/dL (Negative) 11/26/16 Unknown Urine Glucose (UA) Neg mg/dL (Negative) 11/26/16 Unknown Urine Ketones Neg mg/dL (Negative) 11/26/16 Unknown Urine Blood Neg (Negative) 11/26/16 Unknown Urine Nitrite Neg (Negative) 11/26/16 Unknown Urine Bilirubin Neg (Negative) 11/26/16 Unknown Urine Urobilinogen < 2.0 mg/dL (<2.0) 11/26/16 Unknown Ur Leukocyte Esterase Neg (Negative) 11/26/16 Unknown Urine WBC (Auto) Not Reportable 11/26/16 Unknown Urine RBC (Auto) 3.0 /HPF (0.0-6.0) 11/26/16 Unknown U Epithel Cells (Auto) < 1.0 /HPF (0-13.0) 11/26/16 Unknown Urine Mucus Few /HPF 11/26/16 Unknown
[2016-11-30 07:58] LABS: Anion Gap 15 mmol/L; BUN/Creatinine Ratio 5.71; Blood Urea Nitrogen 4 mg/dL (7-17); Calcium 8.6 mg/dL (8.4-10.2); Carbon Dioxide 26 mmol/L (22-30); Chloride 104.5 mmol/L (98-107); Glucose 88 mg/dL (65-100); Magnesium 1.8 mg/dL (1.7-2.3); Potassium 3.5 mmol/L (3.6-5.0); Sodium 142 mmol/L (137-145)
[2016-11-30] MEDS ORDERED: K-DUR PO ONE (10:11)
[2016-11-30] MEDS: LEVAQUIN 750MG/150ML 750 MG/150 ML BAG IV SCH (10:16)
[2016-11-30] MEDS: HABITROL TD SCH (10:21)
[2016-11-30] MEDS: NACL 0.9% 1000 ML 1,000 ML IV SCH (12:09)
[2016-11-30] MEDS: APRESOLINE PO SCH (13:39)
--- NOTE | 2016-11-30 14:36 | Progress Note ---
Subjective Patient Reports: Positive: no new complaints, feels better, flatus, bowel movement Narrative: doing OK abd soft pain 90% less , Pt sneaked [place] to eat !! Objective Vital Signs - 12hr 11/30/16 11/30/16 04:04 13:39 Respiratory 20 Rate Blood Pressure 184/84 - Labs 11/29/16 06:16 11/30/16 07:09 Diabetes panel 11/30/16 Range/Units 07:09 Sodium 142 (137-145) mmol/L Potassium 3.5 L (3.6-5.0) mmol/L Chloride 104.5 (98-107) mmol/L Carbon Dioxide 26 (22-30) mmol/L BUN 4 L (7-17) mg/dL Creatinine 0.7 (0.7-1.2) mg/dL Glucose 88 (65-100) mg/dL Calcium 8.6 (8.4-10.2) mg/dL Calcium panel 11/30/16 Range/Units 07:09 Calcium 8.6 (8.4-10.2) mg/dL Pituitary panel 11/30/16 Range/Units 07:09 Sodium 142 (137-145) mmol/L Potassium 3.5 L (3.6-5.0) mmol/L Chloride 104.5 (98-107) mmol/L Carbon Dioxide 26 (22-30) mmol/L BUN 4 L (7-17) mg/dL Creatinine 0.7 (0.7-1.2) mg/dL Glucose 88 (65-100) mg/dL Calcium 8.6 (8.4-10.2) mg/dL Adrenal panel 11/30/16 Range/Units 07:09 Sodium 142 (137-145) mmol/L Potassium 3.5 L (3.6-5.0) mmol/L Chloride 104.5 (98-107) mmol/L Carbon Dioxide 26 (22-30) mmol/L BUN 4 L (7-17) mg/dL Creatinine 0.7 (0.7-1.2) mg/dL Glucose 88 (65-100) mg/dL Calcium 8.6 (8.4-10.2) mg/dL
[2016-12-01] MEDS: APRESOLINE PO SCH ×4 (02:15→21:51)
[2016-12-01] MEDS: FLAGYL 500 MG/100 ML 500 MG/100 ML BAG IV SCH (06:00)
[2016-12-01 06:38] LABS: Magnesium 1.9 mg/dL (1.7-2.3); Potassium 3.9 mmol/L (3.6-5.0)
[2016-12-01] MEDS: HEPARIN SUB-Q SCH ×3 (06:39→21:49)
[2016-12-01] MEDS: LEVAQUIN PO SCH (09:45)
[2016-12-01] MEDS: HABITROL TD SCH (10:57)
--- NOTE | 2016-12-01 12:56 | Progress Note ---
Subjective Patient Reports: Positive: feels better, no flatus. Negative: pain is less, no bowel movement Narrative: talked to Pt feels improving pain almost gone , tolerating PO well , indicated to Pt need for colonoscopy ,home in AM, Objective Vital Signs - 12hr 12/01/16 12/01/16 12/01/16 01:00 02:15 06:39 Temperature 98.4 F Pulse Rate 64 68 Pulse Rate [ 64 Left Radial] Respiratory 20 Rate Blood Pressure 139/92 140/88 Blood Pressure [Right Arm] O2 Sat by Pulse 96 Oximetry 12/01/16 07:45 Temperature 98.2 F Pulse Rate Pulse Rate [ 61 Left Radial] Respiratory 18 Rate Blood Pressure Blood Pressure 161/77 [Right Arm] O2 Sat by Pulse 98 Oximetry - Labs 11/29/16 06:16 12/01/16 05:13 Diabetes panel 12/01/16 Range/Units 05:13 Potassium 3.9 (3.6-5.0) mmol/L Pituitary panel 12/01/16 Range/Units 05:13 Potassium 3.9 (3.6-5.0) mmol/L Adrenal panel 12/01/16 Range/Units 05:13 Potassium 3.9 (3.6-5.0) mmol/L
[2016-12-01] MEDS: FLAGYL PO SCH ×2 (14:19→21:51)
--- NOTE | 2016-12-01 14:51 | Progress Note ---
Assessment and Plan Assessment and plan: --Acute diverticulitis, microperforation descending colon Improving, advance diet as tolerated Change antibiotics to oral Levaquin and Flagyl DC IV fluids Out of bed and ambulate as tolerated Surgery following --Moderate hypertension; probably secondary to pain pain medications, low-dose hydralazine as needed --Leukocytosis resolved --Acute abdominal pain, resolved --DVT prophylaxis with Lovenox --Morbid obesity; counselled the patient and advised dietary modification and exercise as tolerated and weight reduction When medically stable --Ongoing tobacco use Smoking cessation counseling done, strongly advised to quit tobacco use, Advised nicotine patch Increase ambulation, advance diet as tolerated, possible DC home tomorrow if stable Surgery recommendations noted, plan of care discussed with the patient family members as well as the nurse History Interval history: Patient seen and evaluated this morning in her room Medical records reviewed, denies any abdominal pain no loose stool Tolerating diet, alert awake oriented 3 not in acute distress Hospitalist Physical - Constitutional Vitals: Temp Pulse Resp BP Pulse Ox 98.2 F 61 18 161/77 98 12/01/16 07:45 12/01/16 07:45 12/01/16 07:45 12/01/16 07:45 12/01/16 07:45 General appearance: Present: no acute distress, well-nourished, obese (morbidly obese) - EENT Eyes: Present: PERRL, EOM intact - Neck Neck: Present: supple, normal ROM - Respiratory Respiratory effort: normal Respiratory: negative: rales, rhonchi, wheezing - Cardiovascular Rhythm: regular Heart Sounds: Present: S1 & S2 - Extremities Extremities: no ischemia, pulses intact, pulses symmetrical - Abdominal General gastrointestinal: soft, non-tender, non-distended, normal bowel sounds - Integumentary Integumentary: Present: clear, warm - Psychiatric Psychiatric: appropriate mood/affect, cooperative - Neurologic Neurologic: CNII-XII intact, moves all extremities Results - Labs CBC & Chem 7: 11/29/16 06:16 12/01/16 05:13 Labs: Laboratory Last Values WBC 9.3 K/mm3 (4.5-11.0) 11/29/16 06:16 RBC 4.34 M/mm3 (3.65-5.03) 11/29/16 06:16 Hgb 12.7 gm/dl (10.1-14.3) 11/29/16 06:16 Hct 38.7 % (30.3-42.9) 11/29/16 06:16 MCV 89 fl (79-97) 11/29/16 06:16 MCH 29 pg (28-32) 11/29/16 06:16 MCHC 33 % (30-34) 11/29/16 06:16 RDW 14.7 % (13.2-15.2) 11/29/16 06:16 Plt Count 219 K/mm3 (140-440) 11/29/16 06:16 Lymph % (Auto) 23.9 % (13.4-35.0) 11/29/16 06:16 [place] % (Auto) 7.7 % (0.0-7.3) H 11/29/16 06:16 Eos % (Auto) 2.8 % (0.0-4.3) 11/29/16 06:16 Baso % (Auto) 0.8 % (0.0-1.8) 11/29/16 06:16 Lymph # 2.2 K/mm3 (1.2-5.4) 11/29/16 06:16 [place] # 0.7 K/mm3 (0.0-0.8) 11/29/16 06:16 Eos # 0.3 K/mm3 (0.0-0.4) 11/29/16 06:16 Baso # 0.1 K/mm3 (0.0-0.1) 11/29/16 06:16 Seg Neutrophils % 64.8 % (40.0-70.0) 11/29/16 06:16 Seg Neutrophils # 6.0 K/mm3 (1.8-7.7) 11/29/16 06:16 Sodium 142 mmol/L (137-145) 11/30/16 07:09 Potassium 3.9 mmol/L (3.6-5.0) 12/01/16 05:13 Chloride 104.5 mmol/L (98-107) 11/30/16 07:09 Carbon Dioxide 26 mmol/L (22-30) 11/30/16 07:09 Anion Gap 15 mmol/L 11/30/16 07:09 BUN 4 mg/dL (7-17) L 11/30/16 07:09 Creatinine 0.7 mg/dL (0.7-1.2) 11/30/16 07:09 Estimated GFR > 60 ml/min 11/30/16 07:09 BUN/Creatinine Ratio 5.71 % 11/30/16 07:09 Glucose 88 mg/dL (65-100) 11/30/16 07:09 Calcium 8.6 mg/dL (8.4-10.2) 11/30/16 07:09 Phosphorus 3.5 mg/dL (2.5-4.5) 11/28/16 05:08 Magnesium 1.9 mg/dL (1.7-2.3) 12/01/16 05:13 Total Bilirubin 0.9 mg/dL (0.1-1.2) 11/26/16 23:55 AST 13 units/L (5-40) 11/26/16 23:55 ALT 9 units/L (7-56) 11/26/16 23:55 Alkaline Phosphatase 72 units/L (35-129) 11/26/16 23:55 Total Protein 7.5 g/dL (6.3-8.2) 11/26/16 23:55 Albumin 4.0 g/dL (3.9-5) 11/26/16 23:55 Albumin/Globulin Ratio 1.1 % 11/26/16 23:55 Lipase 19 units/L (13-60) 11/26/16 23:55 Urine Color Yellow (Yellow) 11/26/16 Unknown Urine Turbidity Clear (Clear) 11/26/16 Unknown Urine pH 5.0 (5.0-7.0) 11/26/16 Unknown Ur Specific [place] 1.010 (1.003-1.030) 11/26/16 Unknown Urine Protein <15 mg/dl mg/dL (Negative) 11/26/16 Unknown Urine Glucose (UA) Neg mg/dL (Negative) 11/26/16 Unknown Urine Ketones Neg mg/dL (Negative) 11/26/16 Unknown Urine Blood Neg (Negative) 11/26/16 Unknown Urine Nitrite Neg (Negative) 11/26/16 Unknown Urine Bilirubin Neg (Negative) 11/26/16 Unknown Urine Urobilinogen < 2.0 mg/dL (<2.0) 11/26/16 Unknown Ur Leukocyte Esterase Neg (Negative) 11/26/16 Unknown Urine WBC (Auto) Not Reportable 11/26/16 Unknown Urine RBC (Auto) 3.0 /HPF (0.0-6.0) 11/26/16 Unknown U Epithel Cells (Auto) < 1.0 /HPF (0-13.0) 11/26/16 Unknown Urine Mucus Few /HPF 11/26/16 Unknown
[2016-12-02] MEDS: HEPARIN SUB-Q SCH (05:34)
[2016-12-02] MEDS: APRESOLINE PO SCH (05:35)
[2016-12-02] MEDS: FLAGYL PO SCH (05:38)
--- NOTE | 2016-12-02 08:34 | Discharge Summary ---
Providers - Providers Date of Admission: 11/27/16 10:48 Date of discharge: 12/02/16 Attending physician: MAGGIE AARON Primary care physician: DYNAMITE RECLAIMER Hospitalization Reason for admission: Lt lower quadrant pain/acute diverticulitis Condition: Good Pertinent studies: CT abdomen and pelvis; diverticulitis involving the distal descending and proximal sigmoid colon with possible microperforation Abdominal x-ray; normal study Hospital course: Very pleasant morbidly obese 56-year-old -[place] female patient with significant past medical history of hypertension presented to the emergency room with left lower quadrant abdominal pain of one-day duration Patient was initially evaluated and noted to have acute diverticulitis with possible microperforation, admitted to the hospital Placed nothing by mouth status IV fluids and IV antibiotics, subsequently evaluated by surgery, advised conservative management no surgical intervention at this point Patient's symptoms gradually improved, started on clear liquid diet advanced as tolerated Patient remained afebrile throughout the hospital stay, follow up KUB did not show any new changes Patient is comfortable in bed alert awake oriented 3, denies any nausea vomiting or abdominal pain, tolerating soft diet Ambulatory and hemodynamically stable [id number] evaluation and physical examination done by me prior to discharge is unremarkable as detailed below Will discharge the patient home on oral Cipro and Flagyl for a total of 2 weeks Follow-up with primary care physician as well as surgeon per schedule. Final diagnosis; Acute diverticulitis with possible microperforation Improved Leukocytosis secondary to diverticulitis resolved Hypertension well-controlled Morbid obesity counseling done Tobacco use smoking cessation counseling done advised nicotine patch Disposition: DISCHARGED TO HOME OR SELFCARE Time spent for discharge: 32 min Core Measure Documentation - Palliative Care Palliative Care/ Comfort Measures: Not Applicable - Core Measures Any of the following diagnoses?: none Exam - Constitutional Vitals: Temp Pulse Resp BP Pulse Ox 98 F 62 18 196/98 98 12/02/16 07:55 12/02/16 07:55 12/02/16 07:55 12/02/16 07:55 12/02/16 07:55 General appearance: Present: no acute distress, well-nourished - EENT Eyes: Present: PERRL, EOM intact - Neck Neck: Present: supple, normal ROM - Respiratory Respiratory effort: normal Respiratory: bilateral: diminished, negative: rales, rhonchi, wheezing - Cardiovascular Rhythm: regular Heart Sounds: Present: S1 & S2 - Extremities Extremities: no ischemia, pulses intact, pulses symmetrical Peripheral Pulses: within normal limits - Abdominal General gastrointestinal: Present: soft, non-tender, non-distended, normal bowel sounds - Integumentary Integumentary: Present: clear, warm - Musculoskeletal Musculoskeletal: strength equal bilaterally - Psychiatric Psychiatric: appropriate mood/affect, cooperative - Neurologic Neurologic: CNII-XII intact, moves all extremities Plan Activity: no restrictions Diet: advance as tolerated, other (soft diet) Special Instructions: smoking cessation Additional Instructions: Smoking cessation counseling done patient strongly advised to quit tobacco use advised nicotine patch. Counseling done patient advised diet modification and exercise as tolerated and weight reduction. Advised low fiber diet Follow up with: PRIMARY CARE, [Primary Care Provider] - 3-5 Days MIGEL URBAN MD [Staff Physician] - 7 Days Prescriptions: Ciprofloxacin HCl [Ciprofloxacin TAB] 500 mg PO Q12H #20 tab metroNIDAZOLE [Flagyl] 500 mg PO Q8HR #30 tablet Nicotine [Habitrol] 14 mg TD QDAY #30 patch Oxycodone HCl/Acetaminophen [Percocet 10/325 mg] 1 each PO Q6HR PRN #20 tablet PRN Reason: Pain
[2016-12-02] MEDS: LEVAQUIN PO SCH (09:00)
[2016-12-02] MEDS: HABITROL TD SCH (09:00)
[2016-12-02 12:45] VITALS: BP 150/90
--- NOTE | 2016-12-02 19:17 | Progress Note ---
Subjective Patient Reports: Positive: feels better, tolerating a regular diet Narrative: seen this AM for D/C today , indicated to Pt this may come again , to see Dr Gonzalez , colonscopy ? to se me in 10 days . Objective Vital Signs - 12hr 12/02/16 12/02/16 07:55 11:30 Temperature 98 F 98.9 F Pulse Rate [ 62 80 Left] Respiratory 18 20 Rate Blood Pressure 150/90 [Left Arm] Blood Pressure 196/98 [Right Arm] O2 Sat by Pulse 98 96 Oximetry - Labs 11/29/16 06:16 12/01/16 05:13
== END 2016-12-02 12:00 | disposition home or self-care (01) | DRG 872 ==
LOC: ED 23:07 → 3A 11-27 10:48
PROVIDERS: ADMIT Internal Medicine; ATTEND Internal Medicine
DX: A41.9 Sepsis, unspecified organism (principal); K57.20 Diverticulitis of large intestine with perforation and abscess without bleeding; Z68.42 Body mass index [BMI] 45.0-49.9, adult; I10 Essential (primary) hypertension; Z90.49 Acquired absence of other specified parts of digestive tract; Z90.89 Acquired absence of other organs; Z90.711 Acquired absence of uterus with remaining cervical stump; Z88.8 Allergy status to other drugs, medicaments and biological substances; E66.01 Morbid (severe) obesity due to excess calories; Z91.19 Patient's noncompliance with other medical treatment and regimen; Z82.49 Family history of ischemic heart disease and other diseases of the circulatory system; F17.200 Nicotine dependence, unspecified, uncomplicated; Z71.6 Tobacco abuse counseling; Z71.89 Other specified counseling
CPT/HCPCS: 36415; 74000; 74177; 80048; 80053; 81001; 83690; 83735; 84100; 84132; 85025; 90686; 90732; 96361; 96365; 96366; 96368; 96375; 96376; 99406; J1170; J1644; J1956; J2270; J2405; J2543; J7030; Q9967